=== PATIENT | female | born 1965 | race Asian ===

== ENCOUNTER 2017-08-27 06:25 | Day surgery (SDC) | payer OTHER ==
[~2017-08-27] VITALS: Ht 160 cm; Wt 63.5 kg
[2017-08-27] MEDS ORDERED: IBUPROFEN 800 MG TAB PO PRN (08:30)
[2017-08-27] MEDS ORDERED: MORPHINE SULFATE 4 MG/ML SYR IM/IVP PRN (08:30)
[2017-08-27] MEDS ORDERED: ONDANSETRON 4 MG/2 ML VIAL IVP PRN ×2 (08:30→10:10)
[2017-08-27] MEDS ORDERED: ACETAMINOPHEN/CODEINE 300/30MG 1 TAB PO PRN (08:30)
[2017-08-27] MEDS ORDERED: PROPOFOL 200 MG/20 ML VIAL IV ONE (09:49)
[2017-08-27] MEDS ORDERED: SEVOFLURANE 250 ML BTL INH ONE (09:49)
[2017-08-27] MEDS ORDERED: LIDOCAINE 2% 100 MG/5 ML SYR IVP ONE (09:49)
[2017-08-27] MEDS ORDERED: MIDAZOLAM 2 MG/2 ML VIAL ONE (09:58)
[2017-08-27] MEDS ORDERED: HYDROmorphone 1 MG/ML AMP IVP PRN (10:10)
== END 2017-08-27 11:00 | disposition home or self-care (01) ==
LOC: MDS 06:25 → MMU 06:26 → MDS 11:00
PROVIDERS: ATTEND Obstetrics & Gynecology
DX: N85.00 Endometrial hyperplasia, unspecified (principal); N88.2 Stricture and stenosis of cervix uteri; E78.5 Hyperlipidemia, unspecified; G51.0 Bell's palsy; Z98.890 Other specified postprocedural states; Z88.0 Allergy status to penicillin; Z88.2 Allergy status to sulfonamides; Z90.79 Acquired absence of other genital organ(s); E66.3 Overweight; I12.9 Hypertensive chronic kidney disease with stage 1 through stage 4 chronic kidney disease, or unspecified chronic kidney disease; N18.6 End stage renal disease; I25.10 Atherosclerotic heart disease of native coronary artery without angina pectoris; D64.9 Anemia, unspecified; E11.22 Type 2 diabetes mellitus with diabetic chronic kidney disease; F03.90 Unspecified dementia, unspecified severity, without behavioral disturbance, psychotic disturbance, mood disturbance, and anxiety; J45.909 Unspecified asthma, uncomplicated; F17.210 Nicotine dependence, cigarettes, uncomplicated; K21.9 Gastro-esophageal reflux disease without esophagitis
CPT/HCPCS: 58120; J2001; J2250; J2704; J7120